=== PATIENT | male | born 1995 | race Caucasian/White ===

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

== ENCOUNTER 2018-04-20 09:42 | Emergency (ER) | payer OTHER ==
[2018-04-20 09:50] VITALS: BP 117/74
[2018-04-20] MEDS ORDERED: Azithromycin TAB* 250 MG PO ONE (10:00)
--- NOTE | 2018-04-20 10:02 | UC ---
Complaint Male HPI - HPI Summary HPI Summary: 22 yo male presents requesting STD testing. He tells me that he received a message from a previous partner yesterday notifying him that he was exposed to chlamydia. Pt says this partner was unprotected vaginal intercourse about 3-4 weeks ago. Pt currently denies symptoms. No fever, chills, groin pain, testicular pain, or penile drainage. - History of Current Complaint Chief Complaint: UCSTDScreening Stated Complaint: STD TESTING Time Seen by Provider: 04/20/18 09:44 Hx Obtained From: Patient Severity Currently: None Pain Intensity: 0 Location: None - Allergies/Home Medications Allergies/Adverse Reactions: Allergies Allergy/AdvReac Type Severity Reaction Status Date / Time No Known Allergies Allergy Verified 04/20/18 09:50 Home Medications: Home Medications NK [No Home Medications Reported] 04/20/18 [History Confirmed 04/20/18] PMH/Surg Hx/FS Hx/Imm Hx - Additional Past Medical History Additional PMH: None - Surgical History Surgical History: Yes Surgery Procedure, Year, and Place: WISDOM TEETH - Family History Known Family History: Positive: Unknown - Social History Occupation: Student Lives: With Family Alcohol Use: Occasionally Substance Use Type: Marijuana Smoking Status (MU): Never Smoked Tobacco - Immunization History Hx Tetanus, Diphtheria Vaccination: Yes Vaccination Up to Date: Yes Review of Systems All Other Systems Reviewed And Are Negative: Yes Constitutional: Positive: Negative Skin: Positive: Negative Respiratory: Positive: Negative Cardiovascular: Positive: Negative Gastrointestinal: Positive: Negative Genitourinary: Positive: Negative Neurovascular: Positive: Negative Neurological: Positive: Negative Psychological: Positive: Negative Physical Exam - Summary Physical Exam Summary: GENERAL: NAD. WDWN. No pain distress. SKIN: No streaking, bleeding, or drainage. NECK: Supple. Nontender. No lymphadenopathy. CHEST: No accessory muscle use. Breathing comfortably and in no distress. CV: Pulses intact. Cap refill <2seconds NEURO: Alert. PSYCH: Age appropriate behavior. Triage Information Reviewed: Yes Vital Signs: Initial Vital Signs Temp 98 F 04/20/18 09:48 Pulse 52 04/20/18 09:48 Resp 16 04/20/18 09:48 BP 117/74 04/20/18 09:48 Pulse Ox 99 04/20/18 09:48 Vital Signs Reviewed: Yes Complaint Male Course/Dx - Course Course Of Treatment: Pt declined exam today as he is having no symptoms. Culture was taken for GC/C and he was treated for chlamydia only today (given his known exposure) with 1gm Azithromycin. - Differential Dx/Diagnosis Provider Diagnosis: Chlamydia contact Discharge - Sign-Out/Discharge Documenting (check all that apply): Patient Departure All imaging exams completed and their final reports reviewed: No Studies - Discharge Plan Condition: Stable Disposition: HOME Patient Education Materials: Chlamydia (ED) Referrals: Marcel Montesinos MD [Primary Care Provider] - Additional Instructions: If you develop a fever, shortness of breath, chest pain, new or worsening symptoms - please call your PCP or go to the ED. Please do not engage in sexual activity 1 week from your treatment day (today). Your results will be back in 1-2 days, if we have not contacted you - please call to ask. - Billing Disposition and Condition Condition: STABLE Disposition: Home
== END 2018-04-20 10:16 | disposition home or self-care (01) ==
LOC: UCEAST 09:42
DX: Z20.2 Contact with and (suspected) exposure to infections with a predominantly sexual mode of transmission (principal)
CPT/HCPCS: 87491; 87591; 99212; A9270-GY; G0463